=== PATIENT | male | born 1960 | race Caucasian/White ===

== ENCOUNTER 2016-08-27 07:11 | Day surgery (SDC) | payer OTHER ==
[~2016-08-27] VITALS: Ht 175.3 cm; Wt 74.8 kg
[~2016-08-27 07:11] MED LIST: METF500T4 PO; OMEP20CA16 PO
[2016-08-27 08:57] VITALS: Ht 175.3 cm; Wt 74.8 kg
[2016-08-27 09:00] VITALS: BP 152/87; PULSE 79; RESP 21
[2016-08-27] MEDS ORDERED: MIDAZOLAM 1 MG/ML 2 ML INJ ONE (09:44)
[2016-08-27] MEDS ORDERED: FENTAnyl 50 MCG/ML VIAL ONE (09:44)
[2016-08-27 10:06] VITALS: BP 123/80; PULSE 77; RESP 16
--- NOTE | 2016-08-27 11:31 | GILP ---
DATE OF PROCEDURE: NAME OF PROCEDURES: Colonoscopy and biopsy. SURGEON: Caity Alberto MD PREOPERATIVE DIAGNOSIS: Screening colonoscopy. POSTOPERATIVE DIAGNOSES: 1. Colonoscopy all the way to the cecum. 2. Small sigmoid colon polyp was removed using the biopsy forceps. 3. Internal hemorrhoids. INDICATION FOR THE PROCEDURE: Mr. Raj Story is a 56-year-old male patient who was schedu led for screening colonoscopy. The procedure and possible complications were well explained to the patient. The patient understood and consented to the procedure. DESCRIPTION OF PROCEDURE: Under the influence of fentanyl and Versed, the colonoscope was carefully introduced in the rectum, and under direct vision, it was advanced all the way to the cecum. FINDINGS: The patient had a sigmoid colon polyp and it was removed using the biopsy forceps. The p atient was noted to have internal hemorrhoids. He tolerated the procedure very well, and there was no complication from the procedure. At the end of the procedure, he was awake with stable vital signs and he was discharged home to the care of his family. IMPRESSION: 1. Colonoscopy all the way to the cecum. 2. Small sigmoid colon polyp was removed using the biopsy forceps. 3. Internal hemorrhoids. PLAN: Await histopathology report. Next screening colonoscopy in 10 years. Dictated By: CAITY ROSE/ZACK Conf#: [id number] DID#: [id number]
== END 2016-08-27 10:23 | disposition home or self-care (01) ==
LOC: GIL 07:11
PROVIDERS: ATTEND Internal Medicine Gastroenterology
DX: Z12.11 Encounter for screening for malignant neoplasm of colon (principal); D12.5 Benign neoplasm of sigmoid colon; K64.8 Other hemorrhoids; E11.9 Type 2 diabetes mellitus without complications
CPT/HCPCS: 45380; 82962; 88305; J2250; J3010; Z7610